=== PATIENT | female | born 1950 | race Caucasian/White ===

== ENCOUNTER 2018-05-16 15:56 | Outpatient (CLI) | payer MEDICARE, OTHER ==
--- NOTE | 2018-05-16 17:04 | XRAY Report ---
Procedure Date: 05/16/2018 Accession Number: [id number] / [id number] Procedure: XR - Knee 3 View LT CPT Code: FULL RESULT: EXAM: LEFT KNEE RADIOGRAPHY. EXAM DATE: 05/16/2018 04:38 PM. CLINICAL HISTORY: Fell with subsequent fractures, cortical disruption/fracture. COMPARISON: None. TECHNIQUE: 3 views. FINDINGS: Bones: No displaced fracture. No suspicious focal osseous lesion. Joints: Trace joint effusion. No lipohemarthrosis on crosstable lateral to suggest occult fracture. Minimal sharpening of the tibial spines and minimal osteophytic spurring of the patella indicating minimal/early degenerative change. No significant joint space narrowing demonstrated. Soft Tissues: No focal soft tissue swelling appreciated. IMPRESSION: Trace joint effusion with minimal/early DJD, but no acute osseous abnormality demonstrated. [facility]
--- NOTE | 2018-05-17 17:06 | CT Report ---
Procedure Date: 05/16/2018 Accession Number: [id number] / [id number] Procedure: CT - Upper Extremity Left W/O CPT Code: FULL RESULT: EXAM: LEFT ELBOW CT WITHOUT CONTRAST EXAM DATE: 05/16/2018 05:11 PM. CLINICAL HISTORY: Left elbow pain after previous fall. Previous radial neck fracture. COMPARISON: None. TECHNIQUE: Thin-section axial images were acquired of the elbow without contrast. Post-processing: Coronal and sagittal reformats. Other: None. In accordance with CT protocol optimization, one or more of the following dose reduction techniques were utilized for this exam: automated exposure control, adjustment of mA and/or KV based on patient size, or use of iterative reconstructive technique. FINDINGS: Bones: There is a nondisplaced fracture of the radial neck. The fracture line is ill-defined. The radial head is intact. There is a tiny bone fragment adjacent to the coronoid process of the ulna which may represent a small avulsion or chip-type fracture. Joints: Normal. No large elbow effusion. No calcified loose bodies. Musculature: Normal. No fatty atrophy. Other: None. IMPRESSION: 1. Nondisplaced fracture of the radial neck. 2. Tiny bone fragment adjacent to the coronoid process of the ulna which may represent a small avulsion or chip-type fracture. [facility]
== END 2018-05-16 15:57 | disposition home or self-care (01) ==
LOC: DI 15:56
PROVIDERS: ATTEND Internal Medicine
DX: M25.562 Pain in left knee (principal); M25.522 Pain in left elbow; S52.135D Nondisplaced fracture of neck of left radius, subsequent encounter for closed fracture with routine healing

== ENCOUNTER 2019-02-09 11:35 | Outpatient (CLI) | payer MEDICARE, OTHER ==
[2019-02-09 18:08] LABS: BASOPHILS % (AUTO) 0.6 %; EOSINOPHILS # (AUTO) 0.1 10^3/uL (0.0-0.7); EOSINOPHILS % (AUTO) 1.8 %; LYMPHOCYTES # (AUTO) 1.5 10^3/uL (1.5-3.5); LYMPHOCYTES % (AUTO) 38.4 %; MEAN CORPUSCULAR HEMOGLOBIN 29.7 pg (27.0-31.0); MEAN CORPUSCULAR HGB CONC 32.8 g/dL (32.0-36.0); MEAN CORPUSCULAR VOLUME 90.6 fL (81.0-99.0); MEAN PLATELET VOLUME 11.4 fL (7.9-10.8); MONOCYTES # (AUTO) 0.4 10^3/uL (0.0-1.0); MONOCYTES % (AUTO) 9.8 %; NEUTROPHILS % (AUTO) 49.4 %; PLT - PLATELET COUNT 131 10^3/uL (130-450); RED CELL DISTRIBUTION WIDTH 13.6 % (12.0-15.0); WHITE BLOOD COUNT 3.9 x10^3/uL (4.8-10.8)
[2019-02-09 18:36] LABS: PT - PROTHROMBIN TIME 11.6 secs (9.9-12.6)
[2019-02-09 18:52] LABS: ALBUMIN 4.4 g/dL (3.2-5.5); ALBUMIN/GLOBULIN RATIO 1.5 (1.0-2.2); BILIRUBIN,TOTAL 0.5 mg/dL (0.2-1.0); CREATININE 0.7 mg/dL (0.4-1.0); TOTAL PROTEIN 7.4 g/dL (6.7-8.2)
== END 2019-02-09 11:36 | disposition home or self-care (01) ==
LOC: LAB.F 11:35
PROVIDERS: ATTEND Nurse Practitioner Family
DX: L28.2 Other prurigo (principal); R19.7 Diarrhea, unspecified
CPT/HCPCS: 36415; 80053; 81599; 85025; 85610; 86735; 86762; 86765